=== PATIENT | male | born 1955 | race Caucasian/White ===

== ENCOUNTER → 2022-07-29 | Outpatient (CLI) | payer MEDICARE, MEDICAID ==
[~2022-07-29] MED LIST: COR3 PO; ERGO50CA PO; FURO20TA4 PO; KEPP500 PO; SPIR25TA PO
== END | disposition home or self-care (01) ==
LOC: CT 09:21
PROVIDERS: ATTEND Neurological Surgery
DX: G93.0 Cerebral cysts (principal); I65.23 Occlusion and stenosis of bilateral carotid arteries

== ENCOUNTER → 2022-10-28 | Outpatient (CLI) | payer MEDICARE, MEDICAID | END | disposition home or self-care (01) | LOC: CT 09:30 | PROVIDERS: ATTEND Neurological Surgery | DX: G31.9 Degenerative disease of nervous system, unspecified (principal); I67.82 Cerebral ischemia; R51.9 Headache, unspecified ==